=== PATIENT | female | born 1985 | race Caucasian/White ===

== ENCOUNTER 2021-12-25 11:26 | Emergency (ER) | payer OTHER ==
[2021-12-25] MEDS ORDERED: SODIUM CHLORIDE 0.9% 1,000 ML IV STA (11:43)
[2021-12-25] MEDS ORDERED: KETOROLAC 30 MG/ML VIAL IVP STA (11:43)
[2021-12-25] MEDS ORDERED: PROCHLORPERAZINE 10 MG/2 ML VIAL IVP STA (11:43)
[2021-12-25] MEDS ORDERED: DEXAMETHASONE 10 MG/ML VIAL IVP STA (11:43)
[2021-12-25] MEDS ORDERED: diphenhydrAMINE INJ 50 MG/ML VIAL IVP STA (11:43)
--- NOTE | 2021-12-25 11:45 | ED Physician Documentation ---
PD HPI HEADACHE - Stated complaint Stated Complaint: MIGRAINE,BODYACHES - Chief complaint Chief Complaint: Neuro - History obtained from History obtained from: Patient, Family - History of Present Illness Timing - onset: Enter time (0900), Yesterday Timing - onset during: Rest Timing - duration: Hours Timing - details: Gradual onset, Still present Location: Left Quality: Aching Associated symptoms: Nausea. No: Vomiting Improved by: Rest, Dark room, Quiet, Meds Worsened by: Light, Noise, Moving Similar symptoms before: Diagnosis (migraine) Recently seen: Emergency Dept - Additional information Additional information: Appears well 36-year-old female with a history of migraines has developed a hea dache yesterday morning at 9 AM. Headaches on the left side of her head she had some throbbing throughout the night with some nausea she did not have any vomiting she has had some nasal congestion with this as well. She reports going to [facility] within the last 2 weeks and had a rescue remedy administered that caused some burning in her vagina. She states that this worked well. Review of Systems Constitutional: denies: Fever Eyes: reports: Photophobia. denies: Decreased vision Ears: denies: Ear pain, Drainage/discharge Nose: reports: Rhinorrhea / runny nose, Congestion Throat: denies: Sore throat Cardiac: denies: Chest pain / pressure, Palpitations Respiratory: denies: Dyspnea, Cough GI: reports: Nausea. denies: Abdominal Pain, Vomiting, Constipation, Diarrhea : denies: Dysuria, Frequency PD PAST MEDICAL HISTORY - Present Medications Home Medications: Ambulatory Orders Medication Instructions Recorded Confirmed Azithromycin [Zithromax] 250 mg PO DAILY #6 tablet 12/25/21 Cetirizine [ZyrTEC] 10 mg PO DAILY 12/25/21 12/25/21 Loratadine [Claritin] 10 mg PO DAILY 12/25/21 12/25/21 predniSONE [Deltasone] 20 mg PO DAILY 12/25/21 12/25/21 - Allergies Allergies/Adverse Reactions: Allergies Allergy/AdvReac Type Severity Reaction Status Date / Time No Known Drug Allergies Allergy Verified 12/25/21 11:38 PD ED PE NORMAL - Vitals Vital signs reviewed: Yes (Hypertensive) - General General: Alert and oriented X 3, No acute distress, Well developed/nourished, Other (Pleasant 36-year-old female wearing dark glasses inside) - HEENT HEENT: Atraumatic, PERRL, EOMI, Moist mucous membranes, Other (Right TM is clear the left is erythematous in the attic with rounding of the umbo.) - Neck Neck: Supple, no meningeal sign, No bony TTP - Cardiac Cardiac: RRR, No murmur - Respiratory Respiratory: No respiratory distress, Clear bilaterally - Abdomen Abdomen: Normal bowel sounds, Soft, Non tender, Non distended, No organomegaly - Back Back: No CVA TTP, No spinal TTP - Derm Derm: Normal color, Warm and dry, No rash - Extremities Extremities: No deformity, No edema - Neuro Neuro: Alert and oriented X 3, physicist astrophysics 2-12 intact, No motor deficit, No sensory deficit, Normal speech Eye Opening: Spontaneous Motor: Obeys Commands Verbal: Oriented GCS Score: 15 - Psych Psych: Normal mood, Normal affect Results - Vitals Vitals: Vital Signs - 24 hr 12/25/21 11:36 Temperature 36.4 C L Heart Rate 88 Respiratory 18 Rate Blood Pressure 138/91 H O2 Saturation 100 Oxygen O2 Source Room air PD MEDICAL DECISION MAKING - ED course Complexity details: considered differential, d/w patient, d/w family ED course: 36-year-old female with history of migraines presents to the emergency department with a 1 day history of migraine she has had prior rescue at [facility] and we are providing a similar rescue. The patient has administered a liter of saline 10 mg of Compazine 25 of Benadryl 30 of Toradol 10 of dexamethasone intravenously. She responds well to the treatment. In addition on examination today she has otitis on the left side and I will E scribe some antibiotic for her. Departure - Departure Disposition: 01 Home, Self Care Clinical Impression: Migraine Qualifiers: Migraine type: with aura Status migrainosus presence: without status migrainosus Intractability: not intractable Qualified Code(s): G43.109 - Migraine with aura, not intractable, without status migrainosus Otitis Qualifiers: Laterality: left Qualified Code(s): H66.92 - Otitis media, unspecified, left ear Condition: Stable Instructions: ED Headache Migraine, ED Otitis Media Acute Adult Follow-Up: [facility] [Provider Group] Prescriptions: Azithromycin [Zithromax] 250 mg PO DAILY #6 tablet Comments: [place], today it looks like you have had another migraine headache and there is evidence of middle ear infection on the left side. I have E scribed some azithromycin to [facility] in [place].
[2021-12-25 12:42] VITALS: BP 133/89
== END 2021-12-25 12:47 | disposition home or self-care (01) ==
LOC: ED 11:26
DX: G43.109 Migraine with aura, not intractable, without status migrainosus (principal); H66.92 Otitis media, unspecified, left ear
CPT/HCPCS: 96374; 96375; 99282

== ENCOUNTER 2021-12-26 20:13 | Emergency (ER) | payer OTHER ==
[2021-12-26] MEDS ORDERED: PROCHLORPERAZINE 5 MG TABLET PO STA (20:27)
--- NOTE | 2021-12-26 20:30 | ED Physician Documentation ---
History of Present Illness - Stated complaint Stated Complaint: nausea - Chief complaint Chief Complaint: Abd Pain - Additonal information Additional information: 36-year-old female presents emergency department for evaluation of persistent n ausea. She was seen in this emergency department yesterday by my colleague for a migraine. While here she was given IV fluids, Compazine Benadryl and Toradol with improvement in her headache. Since returning home she reports that her headache is fully resolved but she has had persistent nausea today. There is been no vomiting, no fevers, no dysuria urgency or frequency. No complaints of abdominal pain. When here yesterday she was diagnosed with a left acute otitis media and started on azithromycin. She has started taking the antibiotics. Denies any ear pain. She does state that certain movements of her head increase the nausea. Patient doubts that she is but is unsure. Denies any cannabis use Review of Systems Constitutional: denies: Fever, Chills Eyes: reports: Reviewed and negative Ears: denies: Loss of hearing, Ear pain, Drainage/discharge Nose: reports: Reviewed and negative Cardiac: reports: Reviewed and negative Respiratory: reports: Reviewed and negative GI: reports: Nausea. denies: Abdominal Pain, Vomiting : reports: Reviewed and negative Skin: reports: Reviewed and negative Musculoskeletal: reports: Reviewed and negative Neurologic: reports: Reviewed and negative PD PAST MEDICAL HISTORY - Present Medications Home Medications: Ambulatory Orders Medication Instructions Recorded Confirmed Azithromycin [Zithromax] 250 mg PO DAILY #6 tablet 12/25/21 12/26/21 predniSONE [Deltasone] 20 mg PO DAILY 12/25/21 12/26/21 Ondansetron Odt [Zofran] 4 mg TL Q6H PRN #10 tablet 12/26/21 - Allergies Allergies/Adverse Reactions: Allergies Allergy/AdvReac Type Severity Reaction Status Date / Time No Known Drug Allergies Allergy Verified 12/26/21 20:19 PD ED PE NORMAL - General General: Alert and oriented X 3, No acute distress - HEENT HEENT: Atraumatic, PERRL, EOMI, Moist mucous membranes, Pharynx benign. No: Ears normal (Right ear canal and TM unremarkable. Left TM has a very small effusion otherwise no erythema or abnormal findings.) - Neck Neck: Supple, no meningeal sign, No adenopathy - Cardiac Cardiac: RRR, No murmur - Respiratory Respiratory: No respiratory distress, Clear bilaterally - Abdomen Abdomen: Normal bowel sounds, Soft - Back Back: No CVA TTP, No spinal TTP - Derm Derm: Normal color, Warm and dry, No rash - Extremities Extremities: No deformity - Neuro Neuro: Alert and oriented X 3, assistant to the director 2-12 intact, No motor deficit, Normal speech Eye Opening: Spontaneous Motor: Obeys Commands Verbal: Oriented GCS Score: 15 Results - Vitals Vitals: Vital Signs - 24 hr 12/26/21 20:16 Temperature 37.1 C Heart Rate 94 Respiratory 16 Rate Blood Pressure 151/74 H O2 Saturation 97 Oxygen O2 Source Room air - Labs Labs: Laboratory Tests 12/26/21 12/26/21 12/26/21 20:37 21:25 21:25 WBC 8.8 RBC 4.23 Hgb 13.2 Hct 39.0 MCV 92.2 MCH 31.2 H MCHC 33.8 RDW 13.0 Plt Count 259 MPV 10.6 Neut # (Auto) 7.2 H Lymph # (Auto) 0.8 L [place] # (Auto) 0.7 Eos # (Auto) 0.0 Baso # (Auto) 0.0 Absolute Nucleated RBC 0.00 Nucleated RBC % 0.0 Sodium 140 Potassium 4.1 Chloride 108 Carbon Dioxide 22 Anion Gap 10.0 BUN 19 Creatinine 0.7 Estimated GFR (MDRD) 95 Glucose 110 H Calcium 8.6 Total Bilirubin 0.5 AST 21 ALT 26 Alkaline Phosphatase 66 Total Protein 7.2 Albumin 4.1 Globulin 3.1 Albumin/Globulin Ratio 1.3 Lipase 38 Urine Color YELLOW Urine Clarity CLEAR Urine pH 6.0 Ur Specific [place] 1.025 Urine Protein NEGATIVE Urine Glucose (UA) NEGATIVE Urine Ketones NEGATIVE Urine Occult Blood TRACE-INTA Urine Nitrite NEGATIVE Urine Bilirubin NEGATIVE Urine Urobilinogen 0.2 (NORMAL) Ur Leukocyte Esterase NEGATIVE Ur Microscopic Review NOT INDICATED Urine Culture Comments NOT INDICATED Urine HCG, Qual NEGATIVE PD MEDICAL DECISION MAKING - ED course Complexity details: reviewed results, re-evaluated patient, considered differential, d/w patient ED course: 36 year old Female comes in the emergency department for evaluation of persis tent nausea. She denies any headache abdominal pain diarrhea or dysuria. She was unsure if she could potentially be . She was incidentally seen in this emergency department last night for a migraine that resolved after the use of Benadryl IV fluids Toradol and Compazine. 9 presentation she appeared well though she was dry heaving. She was initially given a single dose of Compazine without relief of her symptoms. Given this I then proceeded to order some screening labs for CBC and chemistry. I requested nursing staff to place an IV and administer 1 L of fluids as well as some of Z ofran. Screening CBC and chemistry without acute worrisome findings. Following the Zofran and IV fluids her nausea had markedly improved. She will be discharged with a prepack tonight and a limited prescription sent to her preferred pharmacy. Advise close follow-up with primary care provider. Emergent return precautions otherwise discussed. Departure - Departure Disposition: Home, Self Care Clinical Impression: Nausea Condition: Stable Record reviewed to determine appropriate education?: Yes Prescriptions: Ondansetron Odt [Zofran] 4 mg TL Q6H PRN #10 tablet PRN Reason: Nausea / Vomiting Comments: [place] you are seen tonight in the emergency department for uncontrolled nausea. While here in the emergency department you were given a dose of Compazine followed by some IV fluids and Zofran. Your screening labs did not show any worrisome findings. You are not . A prescription for a limited amount of Zofran has been sent to the [facility] in [place]. I encourage you to have frequent sips of clear liquids over the next 24 hours and slowly advance your diet. If you find that the nausea does not improve despite the medication, you have uncontrolled vomiting, fever suddenly severe pain then please return immediately to the ER for second evaluation.
[2021-12-26 20:44] LABS: BILIRUBIN,URINE NEGATIVE (NEGATIVE); GLUCOSE, URINE (UA) NEGATIVE (NEGATIVE); KETONES,URINE (UA) NEGATIVE (NEGATIVE); LEUKOCYTE ESTERASE, URINE NEGATIVE (NEGATIVE); NITRITE,URINE NEGATIVE (NEGATIVE); OCCULT BLOOD,URINE TRACE-INTA (NEGATIVE); PROTEIN,URINE NEGATIVE (NEGATIVE); UROBILINOGEN,URINE 0.2 (NORMAL) E.U./dL (NORMAL)
[2021-12-26 20:48] LABS: CLARITY,URINE CLEAR (CLEAR); HCG UR QUAL NEGATIVE
[2021-12-26] MEDS ORDERED: SODIUM CHLORIDE 0.9% 1,000 ML IV STA (21:14)
[2021-12-26] MEDS ORDERED: ONDANSETRON 4 MG/2 ML VIAL IVP STA (21:19)
[2021-12-26 21:29] LABS: BASOPHILS % (AUTO) 0.5 %; EOSINOPHILS % (AUTO) 0.1 %; HGB - HEMOGLOBIN 13.2 g/dL (12.0-16.0); LYMPHOCYTES # (AUTO) 0.8 10^3/uL (1.5-3.5); LYMPHOCYTES % (AUTO) 9.2 %; MEAN CORPUSCULAR HEMOGLOBIN 31.2 pg (27.0-31.0); MEAN CORPUSCULAR HGB CONC 33.8 g/dL (32.0-36.0); MEAN CORPUSCULAR VOLUME 92.2 fL (81.0-99.0); MEAN PLATELET VOLUME 10.6 fL (7.9-10.8); MONOCYTES # (AUTO) 0.7 10^3/uL (0.0-1.0); MONOCYTES % (AUTO) 8.3 %; NEUTROPHILS # (AUTO) 7.2 10^3/uL (1.5-6.6); PLT - PLATELET COUNT 259 10^3/uL (130-450); RED BLOOD COUNT 4.23 10^6/uL (4.20-5.40); WHITE BLOOD COUNT 8.8 x10^3/uL (4.8-10.8)
[2021-12-26 21:43] LABS: ALBUMIN 4.1 g/dL (3.2-5.5); ALBUMIN/GLOBULIN RATIO 1.3 (1.0-2.2); BILIRUBIN,TOTAL 0.5 mg/dL (0.2-1.0); CALCIUM 8.6 mg/dL (8.5-10.3); CREATININE 0.7 mg/dL (0.4-1.0); POTASSIUM 4.1 mmol/L (3.5-5.0); TOTAL PROTEIN 7.2 g/dL (6.7-8.2)
[2021-12-26] MEDS ORDERED: ONDANSETRON ODT 4 MG Prepack 2 TL PRN (21:50)
[2021-12-26 22:00] VITALS: BP 142/78
== END 2021-12-26 22:00 | disposition home or self-care (01) ==
LOC: ED 20:13
DX: R11.0 Nausea (principal)
CPT/HCPCS: 36415; 80053; 81003; 81025; 83690; 85025; 96374; 99282; 99283; A9270; 81001; 87086

== ENCOUNTER 2022-05-11 00:58 | Emergency (ER) | payer OTHER ==
[2022-05-11] MEDS ORDERED: oxyCODONE/ACET 5/325 Prepack 4 PO STA (01:26)
[2022-05-11] MEDS ORDERED: BUPIVACAINE 0.5% PF 10 ML VIAL SUBQ STA (01:28)
--- NOTE | 2022-05-11 01:33 | ED Physician Documentation ---
History of Present Illness - Stated complaint Stated Complaint: tooth pain - Chief complaint Chief Complaint: Heent - History obtained from History obtained from: Patient - Additonal information Additional information: 36-year-old woman Presents with left lower dental pain over the past 24 hours. Patient saw her primary care provider and was given penicillin and referral to dental. She has an appointment tomorrow but has been unable to sleep tonight. Denies fever, difficulty swallowing, trismus, swelling. Mild relief with Orajel. Review of Systems Throat: reports: Dental pain / toothache PD PAST MEDICAL HISTORY - Present Medications Home Medications: Ambulatory Orders Medication Instructions Recorded Confirmed No Known Home Medications 05/11/22 05/11/22 - Allergies Allergies/Adverse Reactions: Allergies Allergy/AdvReac Type Severity Reaction Status Date / Time No Known Drug Allergies Allergy Verified 05/11/22 01:08 PD ED PE NORMAL - Vitals Vital signs reviewed: Yes - General General: Alert and oriented X 3, No acute distress, Well developed/nourished - HEENT HEENT: Atraumatic, PERRL, EOMI, Moist mucous membranes, Other (Poor dentition.) - Neck Neck: Other (submental space soft. no ludwigs) Results - Vitals Vitals: Vital Signs - 24 hr 05/11/22 01:05 Temperature 36.5 C Heart Rate 92 Respiratory 19 Rate Blood Pressure 173/98 H O2 Saturation 99 Oxygen O2 Source Room air PD MEDICAL DECISION MAKING - ED course ED course: 36-year-old woman presented with dental pain, provided Percocet prepack and dental injection. Return precautions given. She will follow-up with dental in the morning. Plan to continue penicillin prescribed by her primary practitioner. Departure - Departure Clinical Impression: Pain, dental Condition: Stable Instructions: ED Tooth Pain Comments: You were given a dental injection with bupivacaine. The effects will last for 4-8 hours. Please continue taking your antibiotics and follow-up with a dentist. Return to the emergency department if you develop new or worsening symptoms or have other concerns.
[2022-05-11 02:19] VITALS: BP 155/88
== END 2022-05-11 02:18 | disposition home or self-care (01) ==
LOC: ED 00:58
DX: K08.89 Other specified disorders of teeth and supporting structures (principal)
CPT/HCPCS: 99282